=== PATIENT | male | born 1980 | race Asian ===

== ENCOUNTER → 2020-11-06 | Day surgery (SDC) | payer OTHER ==
[~2020-11-06] MED LIST: ? CHOLESTEROL MED; ALLERGY MED
== END | disposition home or self-care (01) ==
LOC: FAS 09:37
DX: M79.89 Other specified soft tissue disorders (principal); K29.50 Unspecified chronic gastritis without bleeding; K44.9 Diaphragmatic hernia without obstruction or gangrene; R91.1 Solitary pulmonary nodule; Z20.822 Contact with and (suspected) exposure to COVID-19; Z80.0 Family history of malignant neoplasm of digestive organs; Z91.013 Allergy to seafood
CPT/HCPCS: J1885; J2001; J2250; J2704; J3010; J7120